=== PATIENT | female | born 1955 | race Hispanic/Latino ===

== ENCOUNTER 2022-11-18 08:00 | Outpatient (CLI) | payer BC | END 2022-11-18 08:01 | disposition home or self-care (01) | LOC: CSHMAMMO 08:00 | PROVIDERS: ATTEND Student in an Organized Health Care Education/Training Program | DX: Z12.31 Encounter for screening mammogram for malignant neoplasm of breast (principal); Z13.820 Encounter for screening for osteoporosis; N63.25 Unspecified lump in the left breast, overlapping quadrants; M85.88 Other specified disorders of bone density and structure, other site; Z78.0 Asymptomatic menopausal state | CPT/HCPCS: 77063; 77067; 77080 ==

== ENCOUNTER 2022-11-19 12:35 | Outpatient (CLI) | payer BC, MEDICARE | END 2022-11-19 12:36 | disposition home or self-care (01) | LOC: CSHMAMMO 12:35 | PROVIDERS: ATTEND Student in an Organized Health Care Education/Training Program | DX: N63.22 Unspecified lump in the left breast, upper inner quadrant (principal); Z91.89 Other specified personal risk factors, not elsewhere classified | CPT/HCPCS: 19083; 88305; 88341; 88342; 88360; G0279 ==